=== PATIENT | male | born 1960 | race Hispanic/Latino ===

== ENCOUNTER 2019-02-15 04:42 | Observation (INO) | payer MEDICARE ==
[2019-02-15] MEDS ORDERED: SOLU-Medrol IV ONE (04:52)
[2019-02-15] MEDS ORDERED: BENADRYL IV ONE (04:52)
[2019-02-15] MEDS ORDERED: PEPCID IV ONE (04:52)
[2019-02-15] MEDS ORDERED: ADRENALINE P/F SUB-Q ONE (04:59)
--- NOTE | 2019-02-15 05:06 | Emergency Department Report ---
Blank Doc - Documentation Documentation: 58 male with a past medical history of asthma presents to the hospital with sw elling to his tongue. Patient woke up with swelling to the left side of his tongue was still progressed to the right side of his tongue. He states he did have history of a broken tooth on the left lower jaw. He denies any throat tightness, wheezing, shortness of breath, rash, or pruritus. He denies history of previous allergic reaction. He does not have a history of high blood pressure does not take an ALBERTO inhibitor. He denies taking any new medication. On exam patient has tongue swelling and mild uvula swelling. No stridor, respiratory distress, or wheezing. No rash noted. Floor mouth soft. Placed on inside sales person, IV access obtained. Solu-Medrol, Pepcid, Benadryl, epinephrine injection Differential includes allergic reaction versus versus infection/chase's angina cbc, bmp ordered pt screened to be further evaluated by oncoming provider.
[2019-02-15 05:21] LABS: Basophils # (Auto) 0.1 K/mm3 (0.0-0.1); Basophils % (Auto) 0.6 % (0.0-1.8); Eosinophils # (Auto) 0.4 K/mm3 (0.0-0.4); Eosinophils % (Auto) 4.8 % (0.0-4.3); Hematocrit 45.1 % (35.5-45.6); Hemoglobin 15.1 gm/dl (11.8-15.2); Lymphocytes % (Auto) 35.5 % (13.4-35.0); Mean Corpuscular HGB Conc 34 % (32-34); Mean Corpuscular Volume 88 fl (84-94); Monocytes # (Auto) 0.5 K/mm3 (0.0-0.8); Platelet Count 232 K/mm3 (140-440); Red Blood Count 5.11 M/mm3 (3.65-5.03); Red Cell Distribution Width 14.4 % (13.2-15.2)
[2019-02-15 05:31] LABS: BUN/Creatinine Ratio 24; Blood Urea Nitrogen 17 mg/dL (9-20); Calcium 9.3 mg/dL (8.4-10.2); Hemolysis Index 4
--- NOTE | 2019-02-15 06:09 | Emergency Department Report ---
ED General Adult HPI - General Chief complaint: Allergic Reaction Stated complaint: SWOLLEN TONGUE Time Seen by Provider: 02/15/19 06:04 Source: patient Mode of arrival: Ambulatory Limitations: No Limitations - History of Present Illness Initial comments: 58 male with a past medical history of asthma presents to the hospital with swelling to his tongue. Patient woke up with swelling to the left side of his tongue was still progressed to the right side of his tongue. Patient is complaining of difficulty speaking. He states he did have history of a broken tooth on the left lower jaw. He denies any throat tightness, wheezing, shortness of breath, rash, or pruritus. He denies history of previous allergic reaction. Patient denies mouth pain. He does not have a history of high blood pressure does not take an ALBERTO inhibitor. He denies taking any new medication. Patient states she has not seen any improvement with the medications given in t he ER. -: Sudden Location: mouth Severity scale (0 -10): 0 Consistency: constant Improves with: none Worsens with: none Associated Symptoms: denies other symptoms. denies: confusion, chest pain, cough, diaphoresis, fever/chills, headaches, loss of appetite, malaise, nausea/vomiting, rash, seizure, shortness of breath, syncope, weakness - Related Data Home Medications Medication Instructions Recorded Confirmed Last Taken Advair Diskus 250-50 mcg 250 mcg INHALATION DAILY 02/15/19 02/15/19 Unknown Previous Rx's Medication Instructions Recorded Last Taken Type Famotidine [Pepcid] 20 mg PO BID #20 tablet 02/15/19 Unknown Rx diphenhydrAMINE [Benadryl CAP] 25 mg PO Q8H #14 capsule 02/15/19 Unknown Rx methylPREDNISolone [Medrol 4MG 4 mg PO . DIRECTED 6 Days 02/15/19 Unknown Rx DOSEPAK (21 tabs)] [email or web address] Allergies Allergy/AdvReac Type Severity Reaction Status Date / Time No Known Allergies Allergy Verified 02/15/19 11:49 ED Review of Systems ROS: Stated complaint: SWOLLEN TONGUE Other details as noted in HPI Constitutional: denies: chills, fever Eyes: denies: eye pain, eye discharge, vision change ENT: denies: ear pain, throat pain Respiratory: denies: cough, shortness of breath, wheezing Cardiovascular: denies: chest pain, palpitations Endocrine: no symptoms reported Gastrointestinal: denies: abdominal pain, nausea, diarrhea Genitourinary: denies: urgency, dysuria Musculoskeletal: denies: back pain, joint swelling, arthralgia Skin: denies: rash, lesions Neurological: denies: headache, weakness, paresthesias Psychiatric: denies: anxiety, depression Hematological/Lymphatic: denies: easy bleeding, easy bruising ED Past Medical Hx - Past Medical History Previous Medical History?: Yes Hx Asthma: Yes - Surgical History Past Surgical History?: Yes Additional Surgical History: facial and head - Family History Family history: no significant - Social History Smoking Status: Former Smoker Substance Use Type: Alcohol - Medications Home Medications: Home Medications Medication Instructions Recorded Confirmed Last Taken Type Advair Diskus 250-50 mcg 250 mcg INHALATION DAILY 02/15/19 02/15/19 Unknown History Famotidine [Pepcid] 20 mg PO BID #20 tablet 02/15/19 Unknown Rx diphenhydrAMINE [Benadryl CAP] 25 mg PO Q8H #14 capsule 02/15/19 Unknown Rx methylPREDNISolone [Medrol 4MG 4 mg PO . DIRECTED 6 Days 02/15/19 Unknown Rx DOSEPAK (21 tabs)] tab.ds.pk ED Physical Exam - General Limitations: No Limitations General appearance: alert, in no apparent distress - Head Head exam: Present: atraumatic, normocephalic - Eye Eye exam: Present: normal appearance - ENT ENT exam: Present: mucous membranes dry, TM's normal bilaterally, other (patient's tongue enlargement. Patient's uvula swollen). Absent: normal exam, normal orophraynx - Neck Neck exam: Present: normal inspection - Respiratory Respiratory exam: Present: normal lung sounds bilaterally. Absent: respiratory distress, wheezes, rales, rhonchi, stridor - Cardiovascular Cardiovascular Exam: Present: regular rate, normal rhythm. Absent: systolic murmur, diastolic murmur, rubs, gallop - GI/Abdominal GI/Abdominal exam: Present: soft, normal bowel sounds - Rectal Rectal exam: Present: deferred - Extremities Exam Extremities exam: Present: normal inspection - Back Exam Back exam: Present: normal inspection - Neurological Exam Neurological exam: Present: alert, oriented X3 - Psychiatric Psychiatric exam: Present: normal affect, normal mood - Skin Skin exam: Present: warm, dry, intact, normal color. Absent: rash ED Course Vital Signs 02/15/19 02/15/19 02/15/19 04:44 04:51 05:00 Temperature Pulse Rate 74 68 Respiratory 16 16 Rate Blood Pressure Blood Pressure 157/96 [Left] O2 Sat by Pulse 100 98 Oximetry 02/15/19 02/15/19 02/15/19 05:44 06:11 06:15 Temperature Pulse Rate 65 75 92 H Respiratory 16 16 12 Rate Blood Pressure 161/100 158/105 Blood Pressure 172/94 [Left] O2 Sat by Pulse 96 97 97 Oximetry 02/15/19 02/15/19 02/15/19 06:30 06:41 07:39 Temperature 97.6 F Pulse Rate 76 77 85 Respiratory 12 13 16 Rate Blood Pressure 166/95 166/95 Blood Pressure 144/80 [Left] O2 Sat by Pulse 97 96 96 Oximetry - Reevaluation(s) Reevaluation #1: Patient's tongue has increased in size. Patient will be admitted to the hosp italist service. Patient agrees with plan of care. I discussed all results with patient. 02/15/19 08:19 - Consultations Consultation #1: Hospitalist consulted for admission. Hospitalist admit patient. Orders placed 02/15/19 08:20 ED Medical Decision Making - Lab Data Result diagrams: 02/15/19 05:12 02/15/19 05:12 - Radiology Data Radiology results: report reviewed CT FACIAL BONES WITHOUT CONTRAST INDICATION : MAIN: tongue swelling, TECH NOTES: PT C/O TONGUE SWELLING UPON AWAKENING. PT WAS VERY DROWSY DURING SCAN.. TECHNIQUE: Axial imaging performed through the face with reconstructed images also reviewed. Sagittal and coronal reformatted images. All CT scans at this location are performed using CT dose reduction for ALARA by means of automated exposure control. COMPARISON: CT sinuses dated 04/02/2014 FINDINGS: The tongue has an unremarkable appearance on noncontrast CT. There is no obvious abnormality. The vallecula, epiglottis and prevertebral soft tissues are within normal limits. The peritonsillar tissues are normal. Salivary glands are symmetric and unremarkable. Chronic left inferior orbital wall fracture is identified. A portion of the left frontal bone anterior to the left frontal sinus has been resected with soft tissue density now filling the left frontal sinus. These findings are grossly unchanged since April 2004. Please correlate with the patient's surgical history. There is no evidence for acute facial fracture. There is moderate mucosal thickening throughout the ethmoid air cells and maxillary sinuses. Minimal mucosal thickening in the sphenoid sinuses. The visualized mastoid air cells are clear. IMPRESSION: No acute abnormality is detected. Chronic left facial fractures with evidence of previous surgery as described. Chronic sinusitis. - Medical Decision Making Patient is a 58-year-old male that presents emergent with complaints of tongue swelling. Patient's findings consistent with angioedema. Patient has not improved with therapy. Patient was admitted to observation. Patient's CT is negative for acute findings in the oropharynx. Patient given multiple medications and did not respond to therapy. - Differential Diagnosis angioedema. Tongue swelling. Allergic reaction. Critical Care Time: Yes Critical care attestation.: If time is entered above; I have spent that time in minutes in the direct care of this critically ill patient, excluding procedure time. Critical Care Time: 35 minutes ED Disposition Clinical Impression: Tongue swelling Angioedema Qualifiers: Encounter type: initial encounter Qualified Code(s): T78.3XXA - Angioneurotic edema, initial encounter Disposition: 09 OP ADMIT IP TO THIS HOSP Is pt being admited?: Yes Does the pt Need Aspirin: No Condition: Stable Time of Disposition: 08:20
--- NOTE | 2019-02-15 07:49 | Cat Scan Report ---
CT FACIAL BONES WITHOUT CONTRAST INDICATION : MAIN: tongue swelling, TECH NOTES: PT C/O TONGUE SWELLING UPON AWAKENING. PT WAS VERY D ROWSY DURING SCAN.. TECHNIQUE: Axial imaging performed through the face with reconstructed images also reviewed. Sagitta l and coronal reformatted images. All CT scans at this location are performed using CT dose reduction for ALARA by means of automated exposure control. COMPARISON: CT sinuses dated 04/02/2014 FINDINGS: The tongue has an unremarkable appearance on noncontrast CT. There is no obvious abnormali ty. The vallecula, epiglottis and prevertebral soft tissues are within normal limits. The peritonsill ar tissues are normal. Salivary glands are symmetric and unremarkable. Chronic left inferior orbital wall fracture is identified. A portion of the left frontal bone anterio r to the left frontal sinus has been resected with soft tissue density now filling the left frontal s inus. These findings are grossly unchanged since April 2004. Please correlate with the patient's orourke rgical history. There is no evidence for acute facial fracture. There is moderate mucosal thickening throughout the ethmoid air cells and maxillary sinuses. Minimal mucosal thickening in the sphenoid sinuses. The visualized mastoid air cells are clear. IMPRESSION: No acute abnormality is detected. Chronic left facial fractures with evidence of previous surgery as described. Chronic sinusitis. Signer Name: Kermit Gupta Jr, MD Signed: 02/15/2019 7:45 AM Workstation Name: [id number]
--- NOTE | 2019-02-15 11:21 | History and Physical Report ---
History of Present Illness Date of admission: 02/15/19 08:31 Medications and Allergies Allergies Allergy/AdvReac Type Severity Reaction Status Date / Time No Known Allergies Allergy Unverified 04/02/14 12:24 Home Medications Medication Instructions Recorded Confirmed Last Taken Type Advair Diskus 250-50 mcg 250 mcg INHALATION DAILY 02/15/19 02/15/19 Unknown History Exam - Constitutional Vitals: Temp Pulse Resp BP Pulse Ox 97.6 F 85 16 144/80 96 02/15/19 07:39 02/15/19 07:39 02/15/19 07:39 02/15/19 07:39 02/15/19 07:39 Results - Labs CBC & Chem 7: 02/15/19 05:12 02/15/19 05:12 Labs: Laboratory Last Values WBC 8.3 K/mm3 (4.5-11.0) 02/15/19 05:12 RBC 5.11 M/mm3 (3.65-5.03) H 02/15/19 05:12 Hgb 15.1 gm/dl (11.8-15.2) 02/15/19 05:12 Hct 45.1 % (35.5-45.6) 02/15/19 05:12 MCV 88 fl (84-94) 02/15/19 05:12 MCH 30 pg (28-32) 02/15/19 05:12 MCHC 34 % (32-34) 02/15/19 05:12 RDW 14.4 % (13.2-15.2) 02/15/19 05:12 Plt Count 232 K/mm3 (140-440) 02/15/19 05:12 Lymph % (Auto) 35.5 % (13.4-35.0) H 02/15/19 05:12 [place] % (Auto) 6.0 % (0.0-7.3) 02/15/19 05:12 Eos % (Auto) 4.8 % (0.0-4.3) H 02/15/19 05:12 Baso % (Auto) 0.6 % (0.0-1.8) 02/15/19 05:12 Lymph # 3.0 K/mm3 (1.2-5.4) 02/15/19 05:12 [place] # 0.5 K/mm3 (0.0-0.8) 02/15/19 05:12 Eos # 0.4 K/mm3 (0.0-0.4) 02/15/19 05:12 Baso # 0.1 K/mm3 (0.0-0.1) 02/15/19 05:12 Seg Neutrophils % 53.1 % (40.0-70.0) 02/15/19 05:12 Seg Neutrophils # 4.4 K/mm3 (1.8-7.7) 02/15/19 05:12 Sodium 138 mmol/L (137-145) 02/15/19 05:12 Potassium 3.8 mmol/L (3.6-5.0) 02/15/19 05:12 Chloride 103.5 mmol/L (98-107) 02/15/19 05:12 Carbon Dioxide 25 mmol/L (22-30) 02/15/19 05:12 13 mmol/L 02/15/19 05:12 BUN 17 mg/dL (9-20) 02/15/19 05:12 0.7 mg/dL (0.8-1.5) L 02/15/19 05:12 Estimated GFR > 60 ml/min 02/15/19 05:12 24 % 02/15/19 05:12 Glucose 104 mg/dL (75-100) H 02/15/19 05:12 Calcium 9.3 mg/dL (8.4-10.2) 02/15/19 05:12
[2019-02-15] MEDS ORDERED: TYLENOL PO PRN (12:00)
[2019-02-15] MEDS ORDERED: PROVENTIL IH PRN (12:00)
[2019-02-15] MEDS ORDERED: BENADRYL PO SCH (12:00)
[2019-02-15] MEDS ORDERED: ZOFRAN IV PRN (12:00)
[2019-02-15] MEDS ORDERED: SODIUM CHLORIDE FLUSH SYRINGE 10 ML IV PRN (12:00)
[2019-02-15] MEDS ORDERED: PEPCID IV SCH (12:00)
--- NOTE | 2019-02-15 12:03 | Short Stay Summary ---
Short Stay Documentation Date of service: 02/15/19 - History Past Medical History: hypertension Past Surgical History: No surgical history Social history: no significant social history - Allergies and Medications Current Medications: Allergies No Known Allergies Allergy (Verified 02/15/19 11:49) Home Medications Medication Instructions Recorded Confirmed Last Taken Type Advair Diskus 250-50 mcg 250 mcg INHALATION DAILY 02/15/19 02/15/19 Unknown History Active Medications Acetaminophen (Tylenol) 650 mg PO Q4H PRN PRN Reason: Pain MILD(1-3)/Fever >100.5/MAC Albuterol (Proventil) 2.5 mg IH Q4HRT PRN PRN Reason: Shortness Of Breath Albuterol/Ipratropium (Duoneb *Not For Prn Use*) 1 ampul IH Q6HRT JOSE Diphenhydramine HCl (Benadryl) 25 mg PO Q8H JOSE Stop: 02/15/19 20:01 Famotidine (Pepcid) 10 mg IV BID JOSE Methylprednisolone Sodium Succinate (Solu-Medrol) 80 mg IV Q8HR JOSE Ondansetron HCl (Zofran) 4 mg IV Q8H PRN PRN Reason: Nausea And Vomiting Sodium Chloride (Sodium Chloride Flush Syringe 10 Ml) 10 ml IV BID JOSE Sodium Chloride (Sodium Chloride Flush Syringe 10 Ml) 10 ml IV PRN PRN PRN Reason: LINE FLUSH - Physical exam General appearance: no acute distress, well-nourished Integumentary: no rash, no growths, no abnormal pigmentation HEENT: Atraumatic, PERRLA, EOMI Lungs: Clear to auscultation, Normal air movement Heart: Regular rate, Normal S1, Normal S2, No murmurs, no Murmur Gastrointestinal: normal, normoactive bowel sounds Rectal Exam: deferred Extremities: no ischemia, pulses intact, pulses symmetrical, No edema, normal temperature, normal color, Full ROM Neurological: Normal gait, Normal speech, Strength at 5/5 X4 ext, Normal tone, Sensation intact - Disposition Condition at discharge: Stable Disposition: DC-01 TO HOME OR SELFCARE - Discharge Diagnoses (1) Hypertension Status: Acute (2) Angioedema Status: Acute Qualifiers: Encounter type: initial encounter Qualified Code(s): T78.3XXA - Angioneurotic edema, initial encounter (3) Tongue swelling Status: Acute Short Stay Discharge Plan Follow up with: SHAUNNA PARISI MD [Primary Care Provider] - 7 Days
[2019-02-15 13:11] VITALS: BP 140/96
[2019-02-15] MEDS ORDERED: DUONEB *Not for PRN Use IH SCH (14:00)
[2019-02-15] MEDS ORDERED: SOLU-Medrol IV SCH (14:00)
[2019-02-15] MEDS ORDERED: SODIUM CHLORIDE FLUSH SYRINGE 10 ML IV SCH (22:00)
== END 2019-02-15 16:10 | disposition home or self-care (01) ==
LOC: ED 04:42 → 3A 08:31 → INTOOBSV 08:31
PROVIDERS: ADMIT Internal Medicine; ATTEND Internal Medicine
DX: T78.3XXA Angioneurotic edema, initial encounter (principal); I10 Essential (primary) hypertension
CPT/HCPCS: 36415; 70486; 80048; 85025; 94640; 96372; 96374; 96375; 96376; 99284; G0378; J0171; J1200; J2930